=== PATIENT | female | born 1965 | race Caucasian/White ===

== ENCOUNTER 2018-02-24 00:38 | Inpatient (IN) | payer SELFPAY ==
[2018-02-24] MEDS ORDERED: Ondansetron ODT 4 MG TAB ONE (01:24)
[2018-02-24] MEDS ORDERED: Promethazine HCl 25 MG/ML VIAL ONE (02:01)
[2018-02-24] MEDS ORDERED: Midazolam HCl 5 mg/ml Vial ONE (02:29)
[2018-02-24] MEDS ORDERED: Ondansetron HCl/PF 4 MG/2 ML Vial IVP PRN ×2 (04:54→22:00)
[2018-02-24] MEDS ORDERED: Acetaminophen 325 MG TAB PO PRN (04:54)
[2018-02-24] MEDS ORDERED: Ondansetron ODT 4 MG TAB SL PRN (04:54)
[2018-02-24 05:00] VITALS: BMI 37.9
[2018-02-24] MEDS ORDERED: Ondansetron ODT 4 MG TAB PO PRN ×2 (05:33)
[2018-02-24] MEDS: Ketorolac Tromethamine 30 MG/ML VIAL IVP PRN ×2 (06:00→11:31)
[2018-02-24] MEDS: Acetaminophen 1,000 MG in Premix Bag 1 BAG IVPB PRN ×2 (06:00→11:31)
[2018-02-24] MEDS: Lactated Ringer's 1,000 ML IV SCH ×3 (06:00→19:28)
[2018-02-24] MEDS ORDERED: PROPOFOL 200 MG/20 ML VIAL ONE (06:57)
[2018-02-24] MEDS ORDERED: Succinylcholine Chloride 20 MG/ML 10 ml SYRINGE FS ONE (06:57)
[2018-02-24] MEDS ORDERED: Ondansetron HCl/PF 4 MG/2 ML Vial ONE (06:57)
[2018-02-24] MEDS ORDERED: Dexamethasone 20 MG/5 ML VIAL ONE (06:57)
[2018-02-24] MEDS ORDERED: Lidocaine 1% PF 5 ML VIAL ONE (06:57)
[2018-02-24] MEDS ORDERED: Naloxone HCl 0.4 mg/ml Vial ONE ×2 (06:57→22:08)
[2018-02-24] MEDS ORDERED: Glycopyrrolate 0.2 MG/ML 5 ML SYRINGE ONE (06:57)
[2018-02-24] MEDS ORDERED: Pantoprazole 40 MG VIAL IVP SCH (09:00)
--- NOTE | 2018-02-24 10:04 | RAD ---
ACUTE ABDOMINAL SERIES FRONTAL VIEW CHEST 2 VIEW ABDOMEN: Date: 02/24/18 INDICATION: Small bowel obstruction. NG tube placement. FINDINGS: Frontal view of chest reveals an elevated left hemidiaphragm with underlying bowel gas. Mild volume l oss seen in left lung base. There is accentuation of the cardiac silhouette. Nasogastric tube geraldine es to the medial aspect of the right upper abdomen which may resided within the distal gastric body. There is extensive retained fecal material in the colon. Distended air-filled small bowel is seen. No free air evident. IMPRESSION: 1. Findings which may relate to ileus. The possibility of mechanical obstruction not excluded. 2. Constipation. 3. Nasogastric tube with tip at the expected region of the distal gastric body. POS: MARCUS
--- NOTE | 2018-02-24 13:26 | HP ---
HISTORY OF PRESENT ILLNESS: Paulie Bhatia is a 53-year-old female recently moved from [place] to [place]. She has advanced Alzheimer's. She makes her own decisions, but her mother has power of at torney. The patient is independent and ambulatory. She is . She was in banking previously. She presented to [place] [facility] because of extreme pain mostly in her left abdomen radiati ng to her back. In [place], she was evaluated and her white count was 12, hemoglobin 13. Basic met abolic profile was essentially normal. Liver function tests normal. Patient underwent a CAT scan of the abdomen and pelvis revealing marked distention of her gastric remnant, severe constipation. The patient's CAT scan revealed severe constipation, distention of the gastric remnant. Findings compat ible with bowel obstruction. Decompressed distal loops of small bowel. The patient has had laparoscopic gastric bypass in 2003 at [facility], has had two revisions for wha t she describes as twisting, all performed laparoscopically. ALLERGIES: None. TOBACCO: None. ALCOHOL: None. MEDICATIONS: Clonazepam 0.75 mg at bedtime, Ambien 10 mg at bedtime, Lamictal 25 mg daily; no seizur e in 3 years, sertraline 25 mg daily, Abilify 10 mg daily, folic acid, B12 complex, vitamin D, she ta kes Aricept daily which is not on her home medication list. PAST MEDICAL HISTORY: Dementia, depression, history of urolithiasis. PAST SURGICAL HISTORY: Incisional hernia repair, umbilical area; appendectomy, open 10 years of age; cholecystectomy open midline upper 13 years of age, transvaginal hysterectomy performed for bleeding , prior to that, abdominoplasty and mammoplasty five years ago, colonoscopy 10 years ago, n ormal. Last bowel movement yesterday morning, laparoscopic gastric bypass in 2003 and 270 pounds, 41 -42 BMI preoperatively, she lost down to 155 pounds, but it currently weighs 240 pounds, 5 foot 7, 38 BMI. Two laparoscopies for reduction of internal torsion or hernias, it is difficult to tell from h er history. REVIEW OF SYSTEMS: Ten point noncontributory. PHYSICAL EXAMINATION: VITAL SIGNS: 5 foot 7, 242 pounds, 38 BMI, 98.3 degrees, 94, 122/77. HEENT: Unremarkable. Sclerae nonicteric. Cranial nerves intact. LUNGS: Clear to auscultation, no wheezing. CARDIAC: Regular rate and rhythm without murmur, rub or gallop. ABDOMEN: Soft, tenderness in left upper quadrant, left abdomen with mild guarding. Slightly distend ed. EXTREMITIES: Unremarkable. LABORATORY DATA: Basic metabolic profile and liver function tests normal. White count 12 and hemogl obin 13. ASSESSMENT AND PLAN: 1. Gastric remnant distention. CAT scan findings of proximal bowel obstruction with her history of gastric bypass, would plan laparoscopic evaluation to rule out internal hernia or torsion. Risk of i nfection, bleeding, reoperation, open operation explained, she consents. Risk of infection, bleeding , etc. explained. 2. Dementia. She signed her consents. Her mother has power of trade mark attorney. They live in [place]. 3. Severe constipation. 4. History of urolithiasis. 5. Depression. 6. Multiple operations noted above.
[2018-02-24] MEDS ORDERED: Meropenem 2 GM in Admixture Fee 1 EACH IVPB SCH (14:00)
[2018-02-24] MEDS: Meropenem 2 GM, Admixture Fee 1 EACH in Sodium Chloride 0.9% 100 ML IVPB SCH (15:24)
[2018-02-24] MEDS: Ketorolac Tromethamine 30 MG/ML VIAL IVP SCH ×2 (17:56→23:32)
[2018-02-24] MEDS: Acetaminophen 1,000 MG in Premix Bag 1 BAG IVPB SCH ×2 (17:57→23:32)
[2018-02-24] MEDS ORDERED: Midazolam HCl 2 mg/2 ml Vial ONE ×2 (19:39→20:03)
[2018-02-24] MEDS ORDERED: Fentanyl 100 MCG/2 ML VIAL ONE ×3 (20:03→20:49)
[2018-02-24] MEDS ORDERED: Bupivacaine/Epinephrine 0.25% 30 ML VIAL ONE (20:17)
[2018-02-24] MEDS ORDERED: Bupivacaine HCl 0.5%/Epinephrine 1:200,000/PF 30 ml Vial ONE (20:17)
[2018-02-24] MEDS ORDERED: Famotidine/PF 20 mg/2ml Vial ONE (20:49)
[2018-02-24] MEDS ORDERED: Fentanyl 250 MCG/5 ML VIAL ONE (20:49)
[2018-02-24] MEDS ORDERED: Promethazine HCl 25 MG/ML VIAL IM PRN (22:00)
[2018-02-24] MEDS ORDERED: Promethazine HCl 25 MG/ML VIAL SLOW IVP PRN (22:00)
[2018-02-24] MEDS ORDERED: Meperidine HCl/PF 25 MG/ML VIAL SLOW IVP PRN (22:05)
[2018-02-24] MEDS ORDERED: Acetaminophen 500 MG TAB PO PRN (22:22)
[2018-02-24] MEDS ORDERED: traMADol HCl 50 MG TAB PO PRN (22:22)
[2018-02-24] MEDS ORDERED: Multivit, Adult Inj 10 ML VIAL IV SCH (22:30)
[2018-02-24] MEDS ORDERED: Cyanocobalamin 1000 MCG/ML VIAL IM SCH (23:00)
--- NOTE | 2018-02-24 23:50 | EKG ---
Test Reason : PREOP Blood Pressure : / mmHG Vent. Rate : 089 BPM Atrial Rate : 089 BPM P-R Int : 120 ms QRS Dur : 078 ms QT Int : 368 ms P-R-T Axes : 002 023 035 degrees QTc Int : 447 ms Normal sinus rhythm Nonspecific ST abnormality Abnormal ECG No previous ECGs available Confirmed by DR. Can MARTINEZ MD ([id number]) on 02/24/2018 11:50:25 PM Referred By: JONATHAN Confirmed By:DR. Can MARTINEZ MD
[2018-02-24] MEDS ORDERED: Multivitamins, Adult 10 ML in Sodium Chloride 0.9% 500 ML IV SCH (23:59)
[2018-02-25] MEDS: Meropenem 2 GM, Admixture Fee 1 EACH in Sodium Chloride 0.9% 100 ML IVPB SCH (00:01)
--- NOTE | 2018-02-25 00:53 | OP ---
DATE OF PROCEDURE: 02/24/2018 PREOPERATIVE DIAGNOSIS: Bariatric surgery status, history of Josie-en-Y gastric bypass, severe consti pation, dilated gastric remnant, inspissated fecal material within the small bowel. PROCEDURES: Diagnostic laparoscopy, adhesiolysis. FINDINGS: No mechanical obstruction. The patient's Josie limb was identified, noted to be of normal caliber. The biliary limb was also of normal caliber. The mid small bowel had inspissated fecal mat erial within it, it appeared. Cecum and right colon were distended. SURGEON: Amandeep Whitman MD ANESTHESIA: General, local 0.5% Marcaine with epinephrine 30 mL. DESCRIPTION OF PROCEDURE: The patient was taken to the operating room under general anesthesia. Abd omen was prepared with ChloraPrep, draped in routine fashion. Incision was made in the left lateral subcostal and pneumoperitoneum to 15 mmHg was obtained with the Veress needle, replaced with a 5 port , and laparoscope inserted. Left lateral abdominal incision was made and a 5 port placed. Left lowe r quadrant lateral incision was made a 5 port placed. Cecum was identified. Terminal ileum was iden tified. Terminal ileum run from the ileocecal valve proximally hand over hand, identifying the bilia ry limb, Josie limb, and the jejunojejunostomy. There were inspissated stool in the small bowel dista l to the jejunojejunostomy. Biliary limb was identified and noted to be of normal caliber. Gastric remnant was dilated. Josie limb was normal caliber. It was traced up above the transverse colon. No mechanical obstruction was appreciated except for maybe inspissated small bowel due to severe consti pation. No adhesions were present in the small bowel despite midline incision. There were some adhe sions between the omentum and the Josie limb that were taken down to identify the biliary limb, but th nicolas were not obstructive. Hemostasis was obtained with a cautery and a LigaSure. Sponge and needle counts were correct. Pneumoperitoneum was evacuated. All instruments were removed. All skin incisi ons were approximated with interrupted subdermal 4-0 Monocryl and DermaGlue applied.
[2018-02-25] MEDS: traMADol HCl 50 MG TAB PO PRN ×2 (03:36→11:56)
[2018-02-25] MEDS: Lactated Ringer's 1,000 ML IV SCH ×3 (04:17→17:02)
[2018-02-25 06:06] LABS: #Monocytes 0.1 thou/uL (0.11-0.59); #Neutrophils 7.2 thou/uL (1.40-6.50); %Basophils 0.1 % (0.0-1.0); %Eosinophils 0.3 % (0.0-10.0); %Lymphocytes 11.9 % (21.0-51.0); %Monocytes 1.4 % (0.0-10.0); %Neutrophils 86.4 % (42.0-75.0); Hemoglobin 11.6 g/dL (12.0-16.0); Mean Corpuscular HGB CONC 32.9 g/dL (32.0-36.0); Mean Corpuscular Hemoglobin 29.9 pg (27.0-31.0); Mean Corpuscular Volume 90.9 fl (81.0-99.0); Mean Platelet Volume 7.7 fL (7.4-10.4); Platelet Count 252 thou/uL (130-400); RBC Distribution Width 12.9 % (11.5-14.5); Red Blood Cell (RBC) Count 3.88 mill/uL (4.20-5.40); White Blood Cell (WBC) Count 8.4 thou/uL (4.8-10.8)
[2018-02-25] MEDS: Acetaminophen 1,000 MG in Premix Bag 1 BAG IVPB SCH ×2 (06:14→11:47)
[2018-02-25] MEDS: Ketorolac Tromethamine 30 MG/ML VIAL IVP SCH ×2 (06:14→11:47)
[2018-02-25 06:18] LABS: ALT (SGPT) 47 U/L (8-55); AST (SGOT) 42 U/L (5-34); Albumin 3.9 g/dL (3.5-5.0); Alkaline Phosphatase 135 U/L (40-150); Anion Gap 10 mmol/L (10-20); BUN (Urea Nitrogen) 12 mg/dL (9.8-20.1); Bilirubin, Total 0.4 mg/dL (0.2-1.2); Calc. Creatinine Clearance 157 mL/min (70-130); Calcium 8.6 mg/dL (7.8-10.44); Carbon Dioxide 24 mmol/L (22-29); Chloride 107 mmol/L (98-107); Estimated GFR-MDRD 87; Globulin 2.3 g/dL (2.4-3.5); Glucose 182 mg/dL (70-105); Protein, Total 6.2 g/dL (6.0-8.3); Sodium 137 mmol/L (136-145)
[2018-02-25 06:56] LABS: Vitamin B12 Greater than 2000 pg/mL (211-911)
[2018-02-25] MEDS ORDERED: Magnesium Citrate 300 ML BOT PO SCH (07:00)
[2018-02-25] MEDS ORDERED: lamoTRIgine 25 MG TAB PO SCH (09:00)
[2018-02-25] MEDS ORDERED: pyridOXINE 50 MG (B6) TAB PO SCH (09:00)
[2018-02-25] MEDS ORDERED: Polyethylene Glycol 3350 17 GM Packet PO SCH (09:00)
[2018-02-25] MEDS ORDERED: Pantoprazole 40 MG VIAL IVP SCH (09:00)
[2018-02-25] MEDS ORDERED: Aripiprazole 10 MG TAB PO SCH (09:00)
[2018-02-25] MEDS ORDERED: Multivit, Chewable SF 1 TAB PO SCH (09:00)
[2018-02-25] MEDS ORDERED: Ascorbic Acid 500 mg Chewable Tablet PO SCH (09:00)
[2018-02-25] MEDS ORDERED: Levofloxacin 500 mg/D5W 100 ml Premix Bag ONE (12:11)
[2018-02-25 15:44] VITALS: BP 128/85; TEMP 98
--- NOTE | 2018-02-25 17:29 | PRG ---
DATE OF SERVICE: 02/25/2018 SUBJECTIVE: Ms. Apodaca is doing well today. She is tolerating her diet. She has had bowel movem ents. OBJECTIVE: LUNGS: Clear to auscultation. CARDIAC: Regular rate and rhythm without murmur or gallop. ABDOMEN: Soft, nontender. Bowel sounds present. Laparoscopic wounds well healed. LABORATORY DATA: White count 8, hemoglobin 11.6. Comprehensive metabolic profile was normal. Gluco se 182. Vitamin B12 is greater than 2000, folate 33.2. TSH normal. Other vitamins are pending. ASSESSMENT AND PLAN: Patient received multiple vitamins. Plan is to discharge home today. Diet as tolerated. Follow up in my office in 2-3 weeks.
[2018-02-25] MEDS ORDERED: Zolpidem Tartrate 5 MG TAB PO SCH (21:00)
[2018-02-25] MEDS ORDERED: Enoxaparin Sodium 40 MG/0.4 ML SYRINGE SC SCH (21:00)
[2018-02-25] MEDS ORDERED: Donepezil HCl 10 MG TAB PO SCH (21:00)
[2018-02-25] MEDS ORDERED: clonazePAM 0.5 MG TAB PO SCH (21:00)
--- NOTE | 2018-02-26 08:37 | DIS ---
DATE OF ADMISSION: 02/24/2018 DATE OF DISCHARGE: 02/25/2018 DISCHARGE DIAGNOSES: Abdominal pain, severe constipation, distention of gastric remnant, history of gastric bypass, dementia diagnosis stage IV on Aricept, patient is noncompliant and vitamin replaceme nt post-bariatric surgery, laparoscopic gastric bypass in 2003 at [facility]. HISTORY: A 53-year-old female moved from [place] to [place] recently. She had a laparoscopic gas tric bypass at [facility] in 2003. She has had two different laparoscopic operations for what she d escribed as twisting. She has not required a bowel resection. She, in addition, has had incisional hernia repair, umbilical hernia repair, appendectomy open 10 years of age, cholecystectomy open midli ne 13 years of age, transvaginal hysterectomy performed for bleeding, prior to that, abdomi noplasty and mammoplasty five years ago, colonoscopy 10 years ago, normal. Last bowel movement in th e morning prior to operation. Laparoscopic gastric bypass in 2003 in [place]. Weight 270 pounds , 41-42 BMI according to her preoperatively, now it is down to 155 pounds, currently 240 pounds, 5 fe et 7 inches, 38 BMI. The patient reports to the hospital complaining of abdominal pain, left flank a nd left abdomen. She underwent a CAT scan noting dilatation of gastric remnant, severe constipation and some air fluid levels of small bowel for mild dilatation. She also had gas and stool in her colo n, abundant. The patient was admitted, and because of her dilatation of gastric remnant, history of prior bowel obstructions, bariatric surgery, she was taken to the operating room for laparoscopy, whi ch would reveal no adhesions. She had a few adhesions traced over the transverse colon, a few of the se taken down to visualize the biliary limb, but there is no evidence of obstruction. There was some inspissated small bowel contents segmentally indicated chronic stasis. She did have the stents in h er right colon, probably from her severe constipation. Postoperatively, the patient was given laxati ves. She was also given a full replacement of vitamins due to bariatric surgery status and her histo ry that she does not take vitamins on a routine basis. She reports early onset of severe dementia, a lthough with her not taking her vitamins as instructed after gastric bypass, she could have had a vit glass deficiency. She is encouraged to take her vitamins. She is being discharged home at this time to resume her bariatric diet.
== END 2018-02-25 16:23 | disposition home or self-care (01) | DRG 328 ==
LOC: ERS 00:38 → SURG A 04:34
PROVIDERS: ADMIT Specialist; ATTEND Specialist
PROC: 0DN74ZZ Release Stomach, Pylorus, Percutaneous Endoscopic Approach (ICD-10-PCS; principal; 2018-02-24)
DX: K59.09 Other constipation (principal); Z98.84 Bariatric surgery status; Z91.14 Patient's other noncompliance with medication regimen; F03.90 Unspecified dementia, unspecified severity, without behavioral disturbance, psychotic disturbance, mood disturbance, and anxiety; K66.0 Peritoneal adhesions (postprocedural) (postinfection); K31.89 Other diseases of stomach and duodenum; F32.9 Major depressive disorder, single episode, unspecified; Z90.49 Acquired absence of other specified parts of digestive tract
CPT/HCPCS: 36415; 74022; 80053; 82607; 82746; 84425; 84443; 85025; 93005; 93010; 96374; 96375; C9113; J0131; J0670; J1100; J1885; J1956; J2001; J2185; J2250; J2310; J2405; J2550; J2704; J3010; J3411; J3420; J7050; Q0162; S0028

== ENCOUNTER 2020-01-20 08:52 | Outpatient (CLI) | payer MEDICARE ==
--- NOTE | 2020-01-20 11:28 | CT ---
CT ABDOMEN AND PELVIS WITH IV CONTRAST: HISTORY: Diaphragmatic hernia without obstruction. FINDINGS: The lung bases are clear. There are postop changes of gastric bypass surgery, cholecystectomy, and s mall bowel surgery. There is a calcified granuloma in the spleen. The liver, pancreas, adrenal glan ds, and kidneys are normal. No free air, free fluid, or lymphadenopathy is seen in the abdomen or pe lvis. There are vascular calcifications without evidence of aneurysmal dilatation of the abdominal aorta. There are mild degenerative changes in the spine. The patient is post hysterectomy. Absence of oral contrast reduces the sensitivity of the exam, particularly for evaluation of bowel. No evidence of high-grade small bowel obstruction is seen. IMPRESSION: Postop changes. No acute process. POS: MZA
== END 2020-01-20 08:53 | disposition home or self-care (01) ==
LOC: BICCT 08:52
DX: K44.9 Diaphragmatic hernia without obstruction or gangrene (principal); Z98.890 Other specified postprocedural states
CPT/HCPCS: 74177